=== PATIENT | male | born 1985 | race Caucasian/White ===

== ENCOUNTER 2018-11-01 21:01 | Emergency (ER) | payer OTHER ==
--- NOTE | 2018-11-01 21:06 | NUR ---
Patient to ER h2 for blood alcohol draw. Report given to Franklin LOVELL.
--- NOTE | 2018-11-01 21:10 | NUR ---
Patient arrives via [facility] for legal blood draw. Patient without complaints, able to ambulate without difficulty with slow, steady gait. Patient arrives in handcuffs and is sitting in Hallway chair.
--- NOTE | 2018-11-01 21:24 | NUR ---
Written and verbal consent obtained from patient for blood alcohol, name and verified by patient. Disinfected patient's skin with Povidone-Iodine that did not contain alcohol or other volatile organic compound. Collected the blood from the subject named by venipuncture, in the presence of Deputy Wilcox. Used a sterile, dry hypodermic needle and dry vacuum blood collection. Two dry vacuum blood collection were supplied by the officer named above. Withdrew a specimen of blood from right AC of the subject named above. Inverted both blood tubes several times to ensure that the preservative and anticoagulant were thoroughly mixed in the blood specimens. I initialed both blood tube labels for identification. The labeled blood tubes were handed directly to the Officer named above. The blood tubes stopper remained in place while I had possession of the blood tubes. The Officer placed tubes into envelope and sealed it in my presence. Envelope initialed by myself and Officer named above. Patient tolerated well, bandage applied, and bleeding controlled.
--- NOTE | 2018-11-01 21:30 | NUR ---
Patient left ER in no acute distress without complaints in custody of [facility]. Patient left ER in handcuffs, ambulating without difficulty with slow, steady gait.
== END 2018-11-01 21:03 ==
LOC: SED 21:01
DX: Z02.83 Encounter for blood-alcohol and blood-drug test (principal)